=== PATIENT | male | born 1960 | race Asian ===

== ENCOUNTER → 2019-10-30 | Outpatient (CLI) | payer MEDICAID ==
[~2019-10-30] MED LIST: AMLO5TAB88 PO; TOPUD PO
== END | disposition home or self-care (01) ==
LOC: LAB 08:57
PROVIDERS: ATTEND Orthopaedic Surgery
DX: R05 Cough (principal); Z20.828 Contact with and (suspected) exposure to other viral communicable diseases
CPT/HCPCS: C9803; U0003

== ENCOUNTER → 2019-11-16 | Outpatient (CLI) | payer MEDICAID | END | disposition home or self-care (01) | LOC: LAB 12:42 | PROVIDERS: ATTEND Orthopaedic Surgery | DX: Z01.818 Encounter for other preprocedural examination (principal); Z11.59 Encounter for screening for other viral diseases; M17.11 Unilateral primary osteoarthritis, right knee | CPT/HCPCS: C9803; U0003 ==

== ENCOUNTER 2019-11-19 07:01 | Day surgery (SDC) | payer MEDICAID ==
[~2019-11-19] VITALS: Ht 162.6 cm; Wt 81.6 kg
[~2019-11-19 07:01] MED LIST changes: -AMLO5TAB88 PO; +LACTATED RINGERS 1,000 ML IV SCH; -TOPUD PO
[2019-11-19] MEDS ORDERED: MORPHINE SULFATE/PF 1MG/ML 10ML AMP ONE (07:34)
[2019-11-19] MEDS ORDERED: BUPIVACAINE/EPINEPH/PF 0.25%/0.0005 10ML ONE (07:35)
[2019-11-19] MEDS ORDERED: EPINEPHRINE 1:1000 1 MG/ML AMP ONE (07:36)
[2019-11-19] MEDS ORDERED: LACTATED RINGERS 1,000 ML IV SCH (08:00)
[2019-11-19] MEDS ORDERED: TOPUD PO (09:12)
[2019-11-19] MEDS ORDERED: AMLO5TAB88 PO (09:12)
[2019-11-19] MEDS ORDERED: GLYCOPYRROLATE 0.2 MG/ML 2ML VIAL ONE ×2 (10:02→10:40)
[2019-11-19] MEDS ORDERED: DEXAMETHASONE 4MG/ML 1ML VIAL ONE (10:05)
[2019-11-19] MEDS ORDERED: CEFAZOLIN SODIUM 1000MG/VIAL ONE (10:05)
[2019-11-19] MEDS ORDERED: ONDANSETRON HCL 4MG/2ML INJ ONE (10:06)
[2019-11-19] MEDS ORDERED: HYDROMORPHONE HCL/PF 2MG/ML (OR) ONE (10:32)
[2019-11-19] MEDS ORDERED: LABETALOL 5MG/ML SYR 20 MG/4 ML SYRINGE IV PRN (11:15)
[2019-11-19] MEDS ORDERED: HYDROMORPHONE HCL/PF 2MG/ML CPJ IV PRN (11:15)
[2019-11-19] MEDS ORDERED: MEPERIDINE HCL/PF 25MG/ML CPJ IV PRN (11:15)
[2019-11-19] MEDS ORDERED: ONDANSETRON HCL 4MG/2ML INJ IV PRN (11:15)
[2019-11-19] MEDS ORDERED: HYDROCODONE/ACETAMINOPHEN 10/325MG TABLET PO PRN (11:30)
== END 2019-11-19 13:30 | disposition home or self-care (01) ==
LOC: OR 07:01
PROVIDERS: ATTEND Orthopaedic Surgery
DX: S83.281A Other tear of lateral meniscus, current injury, right knee, initial encounter (principal); S83.241A Other tear of medial meniscus, current injury, right knee, initial encounter; M94.261 Chondromalacia, right knee; M65.88 Other synovitis and tenosynovitis, other site; M25.461 Effusion, right knee; Z79.1 Long term (current) use of non-steroidal anti-inflammatories (NSAID); Z79.899 Other long term (current) drug therapy; X58.XXXA Exposure to other specified factors, initial encounter; Y93.89 Activity, other specified; Y92.89 Other specified places as the place of occurrence of the external cause; Y99.8 Other external cause status
CPT/HCPCS: 29880; 88304; 93005; 97162; J0171; J0690; J1100; J1170; J2274; J2405; J3490